=== PATIENT | male | born 1960 | race Caucasian/White ===

== ENCOUNTER 2019-06-05 06:09 | Day surgery (SDC) | payer BC ==
[~2019-06-05 06:09] MED LIST: Lactated Ringers 1,000 ML IV SCH; Lidocaine 1%/Sod Bicarbonate in NS 8.4% 1 ML Syringe IDERM PRN; Sodium Chloride 0.9% 10 ML Syringe FLUSH PRN
--- NOTE | 2019-06-05 07:15 | PCM.PREANE ---
Preanesthetic Assessment - Procedure Proposed Procedure: colonoscopy - Anesthesia/Transfusion/Family Hx Anesthesia History: Prior Anesthesia Without Reaction Family History of Anesthesia Reaction: No Transfusion History: No Prior Transfusion(s) - Review of Systems General: No Symptoms Pulmonary: No Symptoms Cardiovascular: No Symptoms Gastrointestinal: No Symptoms Neurological: No Symptoms Other: Reports: None - Physical Assessment NPO Status Date: 06/05/19 NPO Status Time: 04:00 O2 Sat by Pulse Oximetry: 98 Respiratory Rate: 16 Vital Signs: Last Vital Signs Temp 98.2 F 06/05/19 06:30 Pulse 50 L 06/05/19 06:30 Resp 16 06/05/19 06:30 BP 126/89 06/05/19 06:30 Pulse Ox 98 06/05/19 06:30 Height: 5 ft 7 in Weight: 64.41 kg ASA Class: 1 Mental Status: Alert & Oriented x3 Airway Class: Mallampati = 1 Dentition: Reports: Normal Dentition Thyro-Mental Finger Breadths: 3 Mouth Opening Finger Breadths: 3 ROM/Head Extension: Full Lungs: Clear to Auscultation, Normal Respiratory Effort Cardiovascular: Regular Rate, Regular Rhythm - Allergies Allergies/Adverse Reactions: Allergies Allergy/AdvReac Type Severity Reaction Status Date / Time bee venom protein (honey bee) Allergy Swelling Verified 06/03/19 10:07 - Blood Blood Available: No - Acknowledgements Anesthesia Type Planned: MAC Pt an Appropriate Candidate for the Planned Anesthesia: Yes Alternatives and Risks of Anesthesia Discussed w Pt/Guardian: Yes Pt/Guardian Understands and Agrees with Anesthesia Plan: Yes PreAnesthesia Questionnaire - Past Health History Medical/Surgical History: Denies Medical/Surgical History HEENT History: Reports: None Cardiovascular History: Reports: None Respiratory History: Reports: None Gastrointestinal History: Reports: None Genitourinary History: Reports: None Musculoskeletal History: Reports: Osteoarthritis, Other (See Below) Other Musculoskeletal History: Right ankle sprain, Left knee pain Neurological History: Reports: None Psychiatric History: Reports: None Endocrine/Metabolic History: Reports: None Hematologic History: Reports: None Immunologic History: Reports: None Oncologic (Cancer) History: Reports: None Dermatologic History: Reports: None - Past Surgical History Head Surgeries/Procedures: Reports: None HEENT Surgical History: Reports: None Cardiovascular Surgical History: Reports: None Respiratory Surgical History: Reports: None GI Surgical History: Other GI Surgeries/Procedures: Bilateral inguinal hernia repair Male Surgical History: Reports: None Endocrine Surgical History: Reports: None Neurological Surgical History: Reports: None Musculoskeletal Surgical History: Reports: None Oncologic Surgical History: Reports: None Dermatological Surgical History: Reports: None - SUBSTANCE USE Smoking Status *Q: Never Smoker Tobacco Use Within Last Twelve Months: No Second Hand Smoke Exposure: No Days Per Week of Alcohol Use: 1 (occasionally) Recreational Drug Use History: No - HOME MEDS Home Medications: Home Meds Aspirin [Halfprin] 81 mg PO DAILY 06/03/19 [History] Cetirizine [ZyrTEC] 10 mg PO DAILY PRN 06/03/19 [History] Glucosamine [Glucosamine Sulfate] 500 mg PO DAILY 06/05/19 [History] - CURRENT (IN HOUSE) MEDS Current Meds: Current Medications Lactated Ringer's (Ringers, Lactated) 1,000 mls @ 125 mls/hr IV ASDIRECTED COLBY Stop: 06/05/19 23:00 Last Admin: 06/05/19 06:35 Dose: 125 mls/hr Lidocaine/Sodium Bicarbonate (Buffered Lidocaine 1% In Ns 8.4%) 0.25 ml IDERM ONETIME PRN PRN Reason: Prior to IV Start Stop: 06/05/19 23:00 Last Admin: 06/05/19 06:35 Dose: 0.25 ml Sodium Chloride (Saline Flush) 10 ml FLUSH ASDIRECTED PRN PRN Reason: Keep Vein Open Stop: 06/05/19 23:00
[2019-06-05] MEDS ORDERED: Lidocaine 1% 4 ML ONE (07:19)
[2019-06-05] MEDS ORDERED: fentaNYL 100 MCG/2 ML SDV ONE (07:20)
[2019-06-05] MEDS ORDERED: Propofol 200 MG/20 ML SDV ONE (07:20)
[2019-06-05] MEDS ORDERED: Glycopyrrolate 0.2 MG/ML SDV ONE (08:39)
--- NOTE | 2019-06-05 08:59 | PCM48HPAN ---
Post Anesthesia Note - EVALUATION WITHIN 48HRS OF ANESTHETIC Vital Signs in Normal Range: Yes Patient Participated in Evaluation: Yes Respiratory Function Stable: Yes Airway Patent: Yes Cardiovascular Function Stable: Yes Hydration Status Stable: Yes Pain Control Satisfactory: Yes Nausea and Vomiting Control Satisfactory: Yes Mental Status Recovered: Yes Pulse Rate: 48 SaO2: 91 Resp Rate: 16 Temperature: 98.5 F Blood Pressure: 96/63
[2019-06-05 09:42] VITALS: BP 101/75
--- NOTE | 2019-06-05 09:46 | OR ---
DATE OF OPERATION: 06/05/2019 SURGEON: Judah Jacobo MD PREOPERATIVE DIAGNOSIS: Colorectal cancer screening. POSTOPERATIVE DIAGNOSIS: Scattered diverticulosis and colorectal cancer screening. OPERATION PERFORMED: Screening colonoscopy. FINDINGS: Scattered diverticulosis. Excellent bowel prep. ANESTHESIA: MAC. PATHOLOGY: None. COMPLICATIONS: None. ESTIMATED BLOOD LOSS: None. DISPOSITION: Stable at the end of the procedure. INDICATION: The patient is a 59-year-old male who has never had colonoscopy. He was sent to [place] for colorectal cancer screening. He was offered a screening colonoscopy per the standard of care. He was fully informed of the major risks, benefits, and alternatives. The risks did include, but are not limited to perforation of the bowel, bleeding, the risks of anesthesia, the possibility of further surgery, and among others. He gave informed consent of what was done. DESCRIPTION OF PROCEDURE: The patient was placed in the left lateral decubitus position. He was given monitored anesthesia. A digital rectal exam was performed. This was unremarkable. I introduced the colonoscope into the rectum with copious lubrication. I advanced the scope keeping the lumen in view at all times with gentle forward pressure. I identified the cecum. I documented the cecum photographically. I slowly investigated the mucosa of the colon from the cecum back to the anus in an exam lasting 7 minutes. A thorough careful examination of the entirety of the colonic mucosa demonstrated no polyps. He had some scattered diverticulosis, but his scope was otherwise unremarkable and negative. At the end of the procedure, the scope was withdrawn. He was awakened from anesthesia and moved to recovery in stable condition. PLAN: He will need another colonoscopy in 10 years. HILDA /[id number]
== END 2019-06-05 09:37 | disposition home or self-care (01) ==
LOC: JD.SDS 06:09
PROVIDERS: ATTEND Surgery
DX: Z12.11 Encounter for screening for malignant neoplasm of colon (principal); K57.30 Diverticulosis of large intestine without perforation or abscess without bleeding; M19.90 Unspecified osteoarthritis, unspecified site; Z91.030 Bee allergy status; Z79.82 Long term (current) use of aspirin; Z79.899 Other long term (current) drug therapy
CPT/HCPCS: J2001; J2704; J3010; J3490; J7120

== ENCOUNTER 2023-03-15 08:06 | Emergency (ER) | payer OTHER ==
[2023-03-15] MEDS ORDERED: Lactated Ringers 1,000 ML IV ONE (09:27)
[2023-03-15] MEDS ORDERED: Acetaminophen/HYDROcodone 325-10 MG Tab PO ONE (09:44)
[2023-03-15] MEDS ORDERED: Cephalexin 500 MG Cap PO ONE (09:44)
[2023-03-15 19:00] VITALS: BP 124/99; PULSE 59
== END 2023-03-15 12:52 | disposition home or self-care (01) ==
LOC: JD.ED 08:06
DX: S82.401A Unspecified fracture of shaft of right fibula, initial encounter for closed fracture (principal); E78.00 Pure hypercholesterolemia, unspecified; M19.90 Unspecified osteoarthritis, unspecified site; Z91.030 Bee allergy status; Z79.82 Long term (current) use of aspirin; Z79.899 Other long term (current) drug therapy; W22.09XA Striking against other stationary object, initial encounter
CPT/HCPCS: 36415; 73590; 80053; 82550; 85025; 96360; 99283; A9270; J7120

== ENCOUNTER 2023-04-22 07:04 | Day surgery (SDC) | payer OTHER ==
[~2023-04-22 07:04] MED LIST changes: +Acetaminophen 325 MG Tab PO SCH; +Lactated Ringers 1,000 ML ONE; +Midazolam 1 MG/ML 2 ML SDV ONE; +Pregabalin 25 MG Cap PO SCH; +Propofol 200 MG/20 ML SDV ONE; +Sodium Chloride 0.9% 10 ML Syringe FLUSH SCH; +ceFAZolin 2 GM Vial ONE; +fentaNYL 100 MCG/2 ML SDV ONE; +oxyCODONE ER 10 MG TAB.ER PO SCH
[2023-04-22] MEDS ORDERED: Ropivacaine 0.5% 5 MG/ML 30 ML SDV ONE (07:05)
[2023-04-22] MEDS ORDERED: EPINEPHrine 1 MG/ML SDV ONE (07:05)
[2023-04-22] MEDS ORDERED: ePHEDrine 50 MG/ML SDV ONE (08:07)
[2023-04-22] MEDS: Morphine 8 MG, EPINEPHrine 0.3 MG, Cefuroxime 750 MG, Ketorolac 30 MG, Sodium Chloride ... PRN ×10 (08:26→08:45)
[2023-04-22] MEDS: Triamcinolone Acetonide 40 MG/ML 1 ML SDV ONE ×2 (08:27→09:07)
[2023-04-22] MEDS: Tranexamic Acid 1,000 MG/10 ML Vial ONE ×2 (08:28→08:51)
[2023-04-22] MEDS: Vancomycin 1 GM SDV ONE ×2 (08:28→08:51)
[2023-04-22] MEDS: Bupivacaine 0.25% 10 ML SDV ONE ×2 (08:28→09:07)
[2023-04-22] MEDS ORDERED: Ondansetron 4 MG/2 ML SDV ONE (08:30)
[2023-04-22] MEDS ORDERED: Dexmedetomidine 200 MCG/2 ML SDV ONE (08:30)
[2023-04-22] MEDS ORDERED: Ketorolac 30 MG/ML SDV ONE (08:30)
[2023-04-22] MEDS ORDERED: HYDROmorphone 0.5 MG/0.5 ML Syringe IVPUSH PRN (08:50)
[2023-04-22] MEDS ORDERED: Ondansetron 4 MG/2 ML SDV IVPUSH PRN (08:50)
[2023-04-22] MEDS ORDERED: fentaNYL 100 MCG/2 ML SDV IVPUSH PRN (08:50)
[2023-04-22] MEDS ORDERED: oxyCODONE 5 MG Tab PO PRN (10:10)
[2023-04-22 14:20] VITALS: BP 100/72; PULSE 58
== END 2023-04-22 13:10 | disposition home or self-care (01) ==
LOC: JD.SDS 07:04
PROVIDERS: ATTEND Orthopaedic Surgery
DX: M17.0 Bilateral primary osteoarthritis of knee (principal); E55.9 Vitamin D deficiency, unspecified; E78.00 Pure hypercholesterolemia, unspecified; F41.0 Panic disorder [episodic paroxysmal anxiety]; G43.909 Migraine, unspecified, not intractable, without status migrainosus; Z91.030 Bee allergy status; Z79.899 Other long term (current) drug therapy; Z98.890 Other specified postprocedural states; Z87.891 Personal history of nicotine dependence; Z79.82 Long term (current) use of aspirin
CPT/HCPCS: 0055T; 20610; 27447; 64447; 73560; 97110; 97116; 97161; A9270; C1713; C1776; J0171; J0690; J0697; J1885; J2250; J2270; J2405; J2704; J2795; J3010; J3301; J3370; J3490; J7120; 01402